=== PATIENT | female | born 1950 | race Caucasian/White ===

== ENCOUNTER 2019-08-26 11:00 | Outpatient (RCR) | payer MEDICARE, OTHER | END 2019-08-26 11:30 | disposition home or self-care (01) | LOC: PT 11:00 | DX: M48.061 Spinal stenosis, lumbar region without neurogenic claudication (principal); M54.16 Radiculopathy, lumbar region; M43.8X9 Other specified deforming dorsopathies, site unspecified ==

== ENCOUNTER 2020-05-02 13:02 | Emergency (ER) | payer MEDICARE, OTHER ==
[~2020-05-02] VITALS: Ht 152.4 cm; Wt 72.7 kg
[2020-05-02] MEDS ORDERED: VENLAFAXINE HY150 MG PO (14:13)
[2020-05-02] MEDS ORDERED: LOSARTAN POTASS1 TA2 PO (14:13)
[2020-05-02] MEDS ORDERED: PILOCARPINE PO (14:15)
[2020-05-02] MEDS ORDERED: PROTONIX TR40 M1 PO (14:15)
[2020-05-02] MEDS ORDERED: NUCYNTA ER100 MG PO (14:17)
[2020-05-02] MEDS ORDERED: MOBIC15 M1 PO (14:17)
[2020-05-02] MEDS ORDERED: SINGULAIR PO (14:17)
[2020-05-02] MEDS ORDERED: NORCO 325 MG-51 TA1 PO (15:12)
[2020-05-02 15:39] VITALS: BP 133/73
== END 2020-05-02 16:14 | disposition home or self-care (01) ==
LOC: ED 13:02
DX: M25.511 Pain in right shoulder (principal); I10 Essential (primary) hypertension; K21.9 Gastro-esophageal reflux disease without esophagitis; M79.7 Fibromyalgia; Z79.891 Long term (current) use of opiate analgesic; V80.010A Animal-rider injured by fall from or being thrown from horse in noncollision accident, initial encounter; Y93.52 Activity, horseback riding; Y92.009 Unspecified place in unspecified non-institutional (private) residence as the place of occurrence of the external cause
CPT/HCPCS: J2270; J2405

== ENCOUNTER 2021-02-22 13:00 | Outpatient (RCR) | payer MEDICARE, OTHER ==
[~2021-02-22 13:00] MED LIST: LOSARTAN POTASS1 TA2 PO; MOBIC15 M1 PO; NORCO 325 MG-51 TA1 PO; NUCYNTA ER100 MG PO; PILOCARPINE PO; PROTONIX TR40 M1 PO; SINGULAIR PO; VENLAFAXINE HY150 MG PO
== END 2021-02-22 17:00 | disposition still patient (30) ==
LOC: PT 13:00
DX: M48.061 Spinal stenosis, lumbar region without neurogenic claudication (principal); M54.16 Radiculopathy, lumbar region

== ENCOUNTER → 2022-03-12 | Outpatient (CLI) | payer MEDICARE, OTHER | LOC: RAD 10:00 | DX: G31.9 Degenerative disease of nervous system, unspecified (principal) ==

== ENCOUNTER → 2022-08-15 | Day surgery (SDC) | payer MEDICARE, OTHER | LOC: MSO 11:19 | DX: H25.811 Combined forms of age-related cataract, right eye (principal) | CPT/HCPCS: 00142; J0171; J2250; V2632 ==

== ENCOUNTER → 2022-09-12 | Day surgery (SDC) | payer MEDICARE, OTHER | END | disposition home or self-care (01) | LOC: MSO 11:46 | DX: H25.812 Combined forms of age-related cataract, left eye (principal); Z86.16 Personal history of COVID-19 | CPT/HCPCS: 00142; J0171; J2250; V2632 ==

== ENCOUNTER → 2025-01-28 | Outpatient (CLI) | payer MEDICARE, OTHER | LOC: RAD 13:22 | DX: R05.1 Acute cough (principal) ==